=== PATIENT | male | born 1955 | race Caucasian/White ===

== ENCOUNTER 2019-05-28 09:14 | Outpatient (CLI) | payer MEDICARE, MEDICAID, SELFPAY ==
--- NOTE | 2019-05-28 09:30 | CT_ITS ---
WS: [id number] CT scan of the abdomen and pelvis with Oral and IV contrast. Additional two-dimensional coronal and s agittal reconstruction was performed. 05/28/2019 Clinical Data: INCISONAL HERNIA Comparison: None. DLP: 513.[address] scans at [facility] use at least one of these dose optimization techniques: automat ed exposure control; mA and/or kV adjustment per patient size (includes targeted exams where dose is matched to clinical indication); or iterative reconstruction. Findings: The lower lungs show no nodules, masses or effusions. The liver, spleen, adrenal glands and pancreas are normal. The gallbladder is absent and there are c lips in the gallbladder fossa from a cholecystectomy. The kidneys show equal bilateral contrast excretion with no cyst or masses. The abdominal aorta is normal in size with minimal calcification in the wall. No appendicitis or diverticulitis is seen. No abscess, adenopathy, ascites, mass, obstruction or free air is seen. No incisional hernia is visualized. Oral contrast is in the colon and small bowel and t here is no bowel dilatation. The bladder is unremarkable. No inguinal hernia is seen. The prostate is enlarged with calcification. The bones of the lower thorax, lumbar spine, pelvis, and hips show osteoarthritis of the lower thorac ic and lumbar vertebral bodies along with a grade 1 spondylolisthesis at L5-S1 with bilateral spondyl olysis. CT/CT abdomen pelvis w con* [id number] Impression: 1. Cholecystectomy and no incisional hernia. 2. Negative for acute intra-abdominal or pelvic abnormalities.
[2019-05-28] MEDS: iohexol 300 mg/mL 50 mL Btl IV (09:37)
[2019-05-28 10:49] LABS: Blood Urea Nitrogen 13 mg/dL (8-23); Glomerular Filtration Rate 84.7 mL/min (90-130)
[2019-05-28] MEDS: iohexol 300 mg/mL 100 mL Btl IV (11:44)
== END 2019-05-28 09:15 | disposition home or self-care (01) ==
LOC: RAD 09:20
PROVIDERS: Visit Provider Surgery
DX: K43.2 Incisional hernia without obstruction or gangrene (principal); Z90.49 Acquired absence of other specified parts of digestive tract
CPT/HCPCS: 36415; 74177; 82565; 84520

== ENCOUNTER 2020-12-28 16:51 | Emergency (ER) | payer MEDICARE, MEDICAID, SELFPAY ==
[2020-12-28 17:20] VITALS: BP 117/75; PULSE 83; RESP 17; TEMP 36.8; O2SAT 95
--- NOTE | 2020-12-28 17:30 | ED_ITS ---
HPI - Extremity Problem General: Chief complaint: Extremity Injury, Upper Stated complaint: fall right hand injury Time Seen by Provider: 12/28/20 17:30 History of Present Illness: HPI Narrative: 65-year-old male patient comes in with injury to the right hand middle finger. Patient reports falling and cutting himself on a probable rock. Patient has a midline laceration to the PIP joint area of the volar aspect of the finger. Patient is guarded with movement due to pain. Patient reports his tetanus is up-to-date. Review of Systems General: Reports: 10 or more systems reviewed and unremarkable except in HPI and below Skin/Breast: Reports: other (laceration right middle finger) PFS ED PFSH: Medical History (Updated 12/28/20 @ 17:42 by JOSE Mena) DJD (degenerative joint disease) Surgical History (Updated 06/11/19 @ 15:00 by Lobo San MD) History of cholecystectomy History of circumcision History of colonoscopy (2019) [facility] 2019 History of esophagogastroduodenoscopy (EGD) (2019) [facility] 2019 History of incisional hernia repair Family History Brother Cancer Liver Father Heart disease Glaucoma Denies family history of Anesthesia complication Bleeding disorder Social History Smoking and tobacco status: former smoker Alcohol intake: never Lives independently: Yes Household members: none Marital status: Single Current occupational status: disabled History of recent travel: No Physical Exam Const: COMMON NORMALS: no acute distress and patient oriented x3 GENERAL APPEARANCE: cooperative HENMT: COMMON NORMALS: normocephalic and Normal external nose present HEAD & SCALP: normal to inspection and normocephalic NOSE: Normal external nose present MOUTH: Normal oral and palatal mucosa present Eye: GENERAL EYE: appearance normal, both eyes and all related structures Neck/C-Spine: COMMON NORMALS: full ROM Chest: COMMONS NORMALS: normal inspection of the chest Resp: COMMON NORMALS: normal respiratory effort EFFORT & INSPECTION: Yes able to speak in complete sentences Cardio: COMMON NORMALS: regular rate and regular rhythm RATE: regular rate RHYTHM: regular rhythm GI: COMMON NORMALS: non-tender Back/Pelvis: COMMON NORMALS: thoracic and lumbar spine normal to inspection Extremity: COMMON NORMALS: normal to inspection Neuro: COMMON NORMALS: patient oriented x3 and moves all extremities Psych: COMMON NORMALS: mental status grossly normal and cooperative Skin: NARRATIVE SKIN EXAM: 2.5 cm laceration volar right middle finger, normal rom, tendon visualized and intact, cap refill intact Procedures Laceration Laceration 1: Site: hand Side (If applicable): right Size (cm): 2.5 Description: linear Depth: simple, single layer Local Anesthetic: lidocaine 1% and with epi Amount of anesthesia used (mL): 3 Pre-repair: wound explored and deep structures intact Skin layer closed with: nylon Size (cm): 4-0 Number of sutures: 7 Technique: simple, interrupted (6) and horizontal mattress (1) Course Vital Signs: Vital signs: Vital Signs Temperature 98.3 F 12/28/20 17:20 Pulse Rate 83 12/28/20 17:20 Respiratory Rate 17 12/28/20 17:20 Blood Pressure 117/75 12/28/20 17:20 Pulse Oximetry 95 12/28/20 17:20 MDM - Extremity (Nontraumatic) MDM Narrative: Medical decision making narrative: Patient comes in with injury to the right middle finger. On exam patient has a 2 and half centimeter laceration to the volar aspect of the right middle finger at the PIP joint area. Patient has normal range of motion of the finger. Distal sensation and cap refill is intact. No foreign body is noted. Differential diagnosis includes but not limited to need for tetanus, laceration, fracture, foreign body. X-ray noted no fracture or foreign body. Patient's tetanus was up-to-date. Wound was closed with 4-0 suture. Patient tolerated well. Patient was continued on cephalexin antibiotic and recommended to follow-up with primary care. Discharge Plan Discharge Clinical Impression: Finger laceration Qualifiers: Encounter type: initial encounter Finger: middle finger Damage to nail status: without damage Foreign body presence: without foreign body Laterality: right Qualified Code(s): S61.212A - Laceration without foreign body of right middle finger without damage to nail, initial encounter Condition: Stable Prescriptions: New cephalexin 500 mg capsule 500 mg PO BID 7 Days Qty: 14 RF: 0 No Action diazepam [Valium] 5 mg tablet 5 mg PO Q6H PRNRF: 0 hydrocodone-acetaminophen 5-325 mg tablet 1 tab PO Q6H PRNRF: 0 Referrals: Amanda Gil APRN [Primary Care Provider] - Discharge Diet: Usual diet Discharge Activity: Increase activity as tolerated Patient Instructions: Suture Care (ED) Activity Restrictions/Additional Instructions: Keep wound clean and dry. Avoid getting wound wet for the next 48 hours. After that you can gently wash the wound with some mild soap and water. Sutures need to come out in 7 to 10 days. Follow-up with primary care in 1 week. Return to the ER for new concerns. Take antibiotics twice a day as directed. Coding Level of Care Code ED Calibration Laboratory Technician for Luba Olson
--- NOTE | 2020-12-28 17:35 | XRR_ITS ---
PROCEDURE INFORMATION: Exam: XR Right Hand Exam date and time: 12/28/2020 5:35 PM Age: 65 years old Clinical indication: Injury or trauma; Fall; Sprain or strain; Hand; Right TECHNIQUE: Imaging protocol: XR Right hand. Views: 3 or more views. Total images: 3 COMPARISON: No relevant prior studies available. FINDINGS: Bones/joints: No visible acute osseous abnormality, fracture, subluxation, or dislocation. No radiographically visible joint effusion. Evidence of mild primary osteoarthritis. Soft tissues: Soft tissues without evidence of edema, swelling, contusion, emphysema, or radiopaque foreign body. XR/XR hand RT min 3V* [id number] IMPRESSION: 1. Nonacute. 2. Evidence of mild primary osteoarthritis.
[2020-12-28] MEDS: HYDROcodone-acetaminophen 5-325 mg Tablet 1 TAB PO (18:30)
[2020-12-28] MEDS: cephALEXin 500 mg Capsule PO (18:31)
== END 2020-12-28 18:55 | disposition home or self-care (01) ==
PROVIDERS: Emergency Provider Nurse Practitioner Family; PCP Nurse Practitioner Family
DX: S61.212A Laceration without foreign body of right middle finger without damage to nail, initial encounter (principal); Z87.891 Personal history of nicotine dependence; W19.XXXA Unspecified fall, initial encounter
CPT/HCPCS: 12001; 73130; 99283

== ENCOUNTER 2022-05-27 10:49 | Emergency (ER) | payer MEDICARE, MEDICAID, SELFPAY ==
[2022-05-27 10:53] VITALS: BP 113/74; PULSE 87; RESP 16; TEMP 36.6; O2SAT 97
--- NOTE | 2022-05-27 10:59 | W.ED.UPPEXIN ---
HPI - Extremity Injury (Upper) General: Chief Complaint: Extremity Injury, Upper Stated Complaint: Left arm injury Time Seen by Provider: 05/27/22 10:51 Source: patient Mode of arrival: ambulatory Limitations: no limitations History of Present Illness: Patient is a 67-year-old male who presents to ED today for evaluation of a left hand injury. Patient tells me yesterday he was using a machine grinder when the blade broke and struck the dorsum of his left hand near the left fifth MCP region causing a laceration. Patient states he dressed the wound. He is here today for continued pain. Last tetanus is unknown. MD complaint: injury to: left and hand Onset (ago): day(s) (yesterday) Other Extremity Injury: Left: hand Other injuries: none Place: home Severity: moderate Relieving factors: immobilization Exacerbating factors: movement of extremity Context: direct blow and laceration Associated symptoms: Reports no associated symptoms; Denies weakness in extremities Treatments prior to arrival: bandage Review of Systems Const: Denies: fever(s), chills or body aches Musc: Reports: extremity pain (L hand) Skin/Breast: Reports: other (laceration left hand) Neuro: Denies: numbness in extremities, weakness in extremities or sensory changes PFS ED PFSH: Medical History (Updated 05/27/22 @ 11:50 by CHERISE Corrales) DJD (degenerative joint disease) Surgical History History of cholecystectomy History of circumcision History of colonoscopy (2019) [facility] 2019 History of esophagogastroduodenoscopy (EGD) (2019) [facility] 2019 History of incisional hernia repair Family History Brother Cancer Liver Father Heart disease Glaucoma Denies family history of Anesthesia complication Bleeding disorder Social History Smoking and tobacco status: former smoker Alcohol intake: never Lives independently: Yes Household members: none Marital status: Single Current occupational status: disabled History of recent travel: No Physical Exam Const: COMMON NORMALS: no acute distress, patient oriented x3, no limitations and alert GENERAL APPEARANCE: cooperative ORIENTATION/CONSCIOUSNESS: Yes awake, Yes oriented to person, Yes oriented to place and Yes oriented to time Extremity: COMMON NORMALS: capillary refill normal LEFT UPPER EXTREMITY: Yes hand & digits OTHER: pt has a small 1cm laceration overlying the dorsal 5th MCP joint; 4-5 digits are held in flexion and he states he cannot extend these; TTP over MCP bony regions; cap refill and sensation normal Neuro: COMMON NORMALS: patient oriented x3 and no sensory deficits noted SENSORIUM/ORIENTATION: Yes alert, Yes oriented to person, Yes oriented to place and Yes oriented to time Course Vital Signs: Vital signs: Vital Signs Temperature 97.8 F 05/27/22 10:53 Pulse Rate 87 05/27/22 10:53 Respiratory Rate 13 05/27/22 11:26 Blood Pressure 113/74 05/27/22 10:53 Pulse Oximetry 97 05/27/22 10:53 Oxygen Delivery Me thod 05/27/22 10:53 MDM - Extremity Injury (Upper) Medical Decision Making No bony injury noted on XR. He does have a laceration overlying the dorsal fifth MCP with an inability to extend that digit making me concerned for extensor tendon injury. Laceration was copiously irrigated and dressed. He will be placed in a splint and will follow-up with orthopedics. He will be placed on antibiotics. Lab Data Radiology Impressions Hand X-Ray 05/27/22 11:02 IMPRESSION: No acute fracture or malalignment. Discharge Plan Discharge Patient Disposition: Home Clinical Impression: Extensor tendon laceration, finger, open wound Qualifiers: Encounter type: initial encounter Qualified Code(s): S56.429A - Laceration of extensor muscle, fascia and tendon of unspecified finger at forearm level, initial encounter Condition: Stable Prescriptions: New cephalexin 500 mg capsule 500 mg PO Q6H 7 Days Qty: 28 0RF No Action diazepam [Valium] 5 mg tablet 5 mg PO Q6H PRN hydrocodone-acetaminophen 5-325 mg tablet 1 tab PO Q6H PRN Discharge Orders: Discharge ED (Routine); Ordered 05/27/22 Ordered By: Flora Betancourt Referrals: Amanda Coughlin FNP-C [Primary Care Provider] - Patient Instructions: Finger Laceration (ED), Tendon Laceration (ED) Activity Restrictions/Additional Instructions: Keep wound clean and monitor for infection (redness, swelling, purulent drainage, red streaking up your hand or arm). Case management should contact you shortly to set you up with your follow-up orthopedic appointment for evaluation of tendon injury. Coding Level of Care Code ED Bindery Chief for Chg Fwd Exam Expanded Problem Focused
--- NOTE | 2022-05-27 11:02 | XRR_ITS ---
PROCEDURE INFORMATION: Exam: XR Left Hand Exam date and time: 05/27/2022 11:11 AM Age: 67 years old Clinical indication: Injury or trauma; Other: Laceration from pulp grinder feeder; Injury date: 05/26/22; Injury details: He was using a pulp grinder feeder when the blade broke and struck the dorsum of his left hand near the left fifth mcp region causing a laceration. ; Additional info: Trauma 4-5 digits TECHNIQUE: Imaging protocol: Radiologic exam of the Left hand. Views: 3 or more views. COMPARISON: No relevant prior studies available. FINDINGS: Bones/joints: No acute fracture or malalignment. Moderate 1st CMC joint degenerative changes. Soft tissues: Soft tissue swelling over the dorsum of the hand. XR/XR hand LT min 3V* [id number] IMPRESSION: No acute fracture or malalignment.
[2022-05-27] MEDS: tetanus-diphtheria tox (adult) 0.5 mL SDV IM (11:11)
[2022-05-27 11:26] VITALS: RESP 13
[2022-05-27] MEDS: morphine 4 mg/mL SDV 1 mL IM (11:26)
--- NOTE | 2022-05-27 14:02 | DCPLANNER ---
Addendum entered by Paola Rudd 05/29/22 13:47: dog races manager received the following message from the ortho clinic regarding follow up appointment: attempt made to contact patient - left vm. will try again as Dr. Infante would like to get patient in tomorrow nurse case manager called patient, who stated that he has followed up with his primary care physician, and that his primary care physician in taking care of the referral for patient. Original Note: dog races manager had message to schedule a follow up appointment for patient with ortho. dog races manager sent patients information to the front office staff at ortho. Patients information will be printed and reviewed. Clinic will call patient with appointment information.
== END 2022-05-27 12:09 | disposition home or self-care (01) ==
PROVIDERS: Emergency Provider Physician Assistant; PCP Nurse Practitioner Family
DX: S66.327A Laceration of extensor muscle, fascia and tendon of left little finger at wrist and hand level, initial encounter (principal); W29.8XXA Contact with other powered hand tools and household machinery, initial encounter; Z87.891 Personal history of nicotine dependence; Z23 Encounter for immunization
CPT/HCPCS: 73130; 90471; 90714; 96372; 99284; J2270

== ENCOUNTER → 2023-02-17 09:00 | Outpatient (BNVA) | payer OTHER, MEDICAID, SELFPAY | PROVIDERS: PCP Nurse Practitioner Family; Visit Provider Nurse Practitioner Family | DX: L60.3 Nail dystrophy (principal); B35.1 Tinea unguium; D22.39 Melanocytic nevi of other parts of face; L81.4 Other melanin hyperpigmentation | CPT/HCPCS: 99203 ==

== ENCOUNTER 2023-08-07 10:03 | Outpatient (CLI) | payer MEDICARE, MEDICAID, SELFPAY ==
[2023-08-07 12:08] LABS: Basophils % 0.3 %; Eosinophils % 0.4 %; Hematocrit 44.1 % (37-53); Lymphocytes # 1.5 10^3/uL (0.8-4.8); Lymphocytes % 13.8 %; Mean Corpuscular HGB Conc 33.6 g/dL (30-55); Mean Corpuscular Hemoglobin 30.8 pg (27-33); Mean Corpuscular Volume 91.9 fl (82-101); Mean Platelet Volume 10.3 fL (7.4-10.4); Monocytes # 0.6 10^3/uL (0.2-0.9); Monocytes % 5.7 %; Neutrophils # 8.59 10^3/uL (1.8-7.7); Neutrophils % 79.4 %; Nucleated Red Blood Cells % 0 %; Platelet Count 268 10^3/cmm (157-399); Red Cell Distribution Width 12.7 % (12.1-15.1); White Blood Count 10.81 10^3/uL (3.29-11.43)
[2023-08-07 12:19] LABS: Estmated Average Glucose 117; Hemoglobin A1C 5.7 % (4.0-6.0)
[2023-08-07 12:51] LABS: Prostate Specific Antigen Scr 0.62 ng/mL (0-4); Thyroid Stimulating Hormone 0.88 uIU/mL (0.27-4.20)
[2023-08-07 13:00] LABS: 25 Hydroxy Vitamin D 29 ng/mL (30-100); Alanine Aminotransferase 16 U/L (0-41); Albumin Level 4.4 g/dL (3.5-5.2); Alkaline Phosphatase 80 U/L (40-130); Anion Gap 16.5 (5-19); Aspartate Amino Transferase 17 U/L (0-40); Blood Urea Nitrogen 19 mg/dL (8-23); Calcium 9.4 mg/dL (8.5-10.5); Carbon Dioxide 27 mmol/L (22-29); Chloride 99 mmol/L (98-107); Chol HDL Ratio 2.46 mg/dL (1.0-5.00); Cholesterol 165 mg/dL (0-200); Globulin 3.2 g/dL (1.3-4.6); Glomerular Filtration Rate 95.8 mL/min (90-130); Glucose 98 mg/dL (65-115); HDL Cholesterol 67 mg/dL (60-100); LDL Cholesterol Calculated 82 mg/dL (50-129); LDL HDL Ratio 1.22 RATIO (0.00-3.22); Osmolality Calculated 288 mOsm/kg (285-295); Potassium 4.5 mmol/L (3.5-5.1); Sodium 138 mmol/L (136-145); Total Bilirubin 0.2 mg/dL (0.15-1.2); Total Protein 7.6 g/dL (6.6-8.7); Triglycerides 82 mg/dL (0-150); Vitamin B12 713 pg/mL (232-1245)
[2023-08-07 13:05] LABS: Folate Level 15.5 ng/mL (4.5-32.2)
[2023-08-07 13:30] LABS: Hepatitis C Virus Antibody Reactive (Nonreactive)
[2023-08-09 17:10] LABS: HEP C RNA Viral Load Quant <1.18 NOT DETECTED Log IU/mL (NOT DETECTED); HEP C RNA Viral Load Quant <15 NOT DETECTED IU/mL (NOT DETECTED)
== END 2023-08-07 10:04 | disposition home or self-care (01) ==
LOC: LAB 10:05
PROVIDERS: PCP Family Medicine; Visit Provider Family Medicine
DX: E55.9 Vitamin D deficiency, unspecified (principal); G62.9 Polyneuropathy, unspecified; Z12.5 Encounter for screening for malignant neoplasm of prostate; Z86.19 Personal history of other infectious and parasitic diseases
CPT/HCPCS: 36415; 80053; 80061; 82306; 82607; 82746; 83036; 84443; 85025; 86803; 87522; G0103

== ENCOUNTER 2024-04-29 15:29 | Outpatient (CLI) | payer MEDICARE, MEDICAID, SELFPAY ==
[2024-04-29 17:33] LABS: Basophils % 0.3 %; Eosinophils # 0.4 10^3/uL (0.0-0.8); Eosinophils % 4.1 %; Hematocrit 39.9 % (37-53); Lymphocytes # 3.3 10^3/uL (0.8-4.8); Lymphocytes % 33.5 %; Mean Corpuscular HGB Conc 33.3 g/dL (30-55); Mean Corpuscular Volume 90.1 fl (82-101); Mean Platelet Volume 10.7 fL (7.4-10.4); Monocytes # 0.8 10^3/uL (0.2-0.9); Neutrophils # 5.21 10^3/uL (1.8-7.7); Neutrophils % 53.8 %; Nucleated Red Blood Cells % 0 %; Platelet Count 217 10^3/cmm (157-399); Red Blood Count 4.43 10^6/uL (3.85-5.65)
[2024-04-29 18:35] LABS: 25 Hydroxy Vitamin D 32 ng/mL (30-100); Alanine Aminotransferase 22 U/L (0-41); Albumin Level 4.2 g/dL (3.5-5.2); Alkaline Phosphatase 74 U/L (40-130); Anion Gap 15.7 (5-19); Aspartate Amino Transferase 18 U/L (0-40); Blood Urea Nitrogen 13 mg/dL (8-23); Calcium 9.6 mg/dL (8.5-10.5); Carbon Dioxide 27 mmol/L (22-29); Chloride 99 mmol/L (98-107); Chol HDL Ratio 2.39 mg/dL (1.0-5.00); Cholesterol 158 mg/dL (0-200); Folate Level 17.7 ng/mL (4.5-32.2); Globulin 3.1 g/dL (1.3-4.6); Glomerular Filtration Rate 133.2 mL/min (90-130); Glucose 90 mg/dL (65-115); HDL Cholesterol 66 mg/dL (60-100); LDL Cholesterol Calculated 74 mg/dL (50-129); LDL HDL Ratio 1.12 RATIO (0.00-3.22); Osmolality Calculated 286 mOsm/kg (285-295); Potassium 3.7 mmol/L (3.5-5.1); Prostate Specific Antigen 0.432 ng/mL (0-4); Sodium 138 mmol/L (136-145); Total Bilirubin 0.2 mg/dL (0.15-1.2); Total Protein 7.3 g/dL (6.6-8.7); Triglycerides 88 mg/dL (0-150); Vitamin B12 571 pg/mL (232-1245)
[2024-04-29 20:08] LABS: Estmated Average Glucose 111; Hemoglobin A1C 5.5 % (4.0-6.0)
== END 2024-04-29 15:30 | disposition home or self-care (01) ==
PROVIDERS: PCP Family Medicine; Visit Provider Family Medicine
DX: Z00.00 Encounter for general adult medical examination without abnormal findings (principal); Z79.891 Long term (current) use of opiate analgesic; F41.1 Generalized anxiety disorder; R54 Age-related physical debility; Z12.5 Encounter for screening for malignant neoplasm of prostate
CPT/HCPCS: 80053; 80061; 82306; 82607; 82746; 83036; 84153; 85025

== ENCOUNTER → 2025-05-02 10:07 | Outpatient (BNVA) | payer MEDICARE, MEDICAID, SELFPAY | PROVIDERS: PCP Family Medicine; Visit Provider Student in an Organized Health Care Education/Training Program | DX: Z12.11 Encounter for screening for malignant neoplasm of colon (principal) | CPT/HCPCS: 99024; 99204 ==